=== PATIENT | male | born 1950 | race Caucasian/White ===

== ENCOUNTER 2024-01-21 19:01 | Inpatient (IN) | payer MEDICARE, BC ==
[~2024-01-21] VITALS: Ht 185.4 cm; Wt 88.9 kg
[2024-01-21 19:27] LABS: BASOPHILS # (AUTO) 0.1 K/UL (0.0-0.2); BASOPHILS % (AUTO) 1.2 % (0.0-2.0); EOSINOPHILS # (AUTO) 0.2 K/uL (0.0-0.7); EOSINOPHILS % (AUTO) 3.4 % (0.0-7.0); HEMATOCRIT 42.3 % (36.7-47.1); HEMOGLOBIN 14.1 g/dL (12.5-16.3); LYMPHOCYTES # (AUTO) 1.4 K/uL (0.8-4.8); LYMPHOCYTES % (AUTO) 23.5 % (20.5-51.5); MEAN CORPUSCULAR HEMOGLOBIN 29.8 uug (23.8-33.4); MEAN CORPUSCULAR HGB CONC 33 g/dL (32.5-36.3); MEAN CORPUSCULAR VOLUME 89.3 fL (73.0-96.2); MONOCYTES # (AUTO) 0.5 K/uL (0.1-1.30); MONOCYTES % (AUTO) 8.5 % (0.0-11.0); NEUTROPHILS # (AUTO) 3.7 K/uL (1.8-8.9); NEUTROPHILS % (AUTO) 63.4 % (38.5-71.5); PLATELET COUNT (AUTO) 195 K/uL (152-348); RED BLOOD CELL COUNT(AUTO) 4.74 MIL/uL (4.06-5.63); RED CELL DISTRIBUTION WIDTH 13.8 % (12.1-16.2); WHITE BLOOD COUNT (AUTO) 5.8 K/uL (3.6-10.2)
[2024-01-21 19:47] LABS: DIFFERENTIAL COMMENT 1
[2024-01-21 19:52] LABS: CALCIUM 9.4 mg/dL (8.5-10.1); CARBON DIOXIDE 29 mmol/L (21-32); CHLORIDE 109 mmol/L (98-107); CREATININE 1.7 mg/dL (0.6-1.3); GLUCOSE 93 mg/dL (74-106); POTASSIUM 4.9 mmol/L (3.5-5.1); SODIUM SERUM 144 mmol/L (136-145); UREA NITROGEN, BLOOD 21 mg/dL (7-18)
[2024-01-21 19:57] LABS: ETHANOL < 3 MG/DL (0-10)
[2024-01-21 20:08] LABS: ACETAMINOPHEN < 2.0 ug/mL (10-30); ALANINE AMINOTRANSFERASE 23 U/L (16-63); ALBUMIN 3.5 g/dL (3.4-5.0); ALKALINE PHOSPHATASE 125 U/L (50-136); ASPARTATE AMINOTRANSFERASE 18 U/L (15-37); BILIRUBIN,TOTAL 0.9 mg/dL (0.2-1.0); TOTAL PROTEIN, SERUM 7.1 g/dL (6.4-8.2)
[2024-01-21] MEDS ORDERED: ATOR10TA PO (20:12)
[2024-01-21] MEDS ORDERED: FINA5TAB11 PO (20:12)
[2024-01-21] MEDS ORDERED: BUPR300T52 (20:12)
[2024-01-21] MEDS ORDERED: ZOLP10TA6 (20:12)
[2024-01-21] MEDS ORDERED: LEVO50CA4 PO (20:12)
[2024-01-21] MEDS ORDERED: ALPR2TAB7 (20:12)
[2024-01-21] MEDS ORDERED: TADA5TAB2 PO (20:12)
[2024-01-21] MEDS ORDERED: AMLO10TA4 PO (20:12)
[2024-01-21 20:35] LABS: *BILIRUBIN,URIN NEGATIVE (NEGATIVE); *BLOOD, URINE NEGATIVE (NEGATIVE); *CLARITY,URINE CLEAR (CLEAR); *COLOR,URINE YELLOW (YELLOW); *KETONES,URINE NEGATIVE (NEGATIVE); *PROTEIN,URINE NEGATIVE (NEGATIVE); *UROBILINOGEN,URINE 0.2 E.U./dl (NORMAL); LEUKOCYTE ESTERASE ,URINE NEGATIVE (NEGATIVE); NITRITE, URINE NEGATIVE (NEGATIVE); UGLUCOSE NEGATIVE (NEGATIVE)
[2024-01-21 20:48] LABS: *AMPHETAMINE, URINE NEGATIVE (NEGATIVE); *BARBITURATE, URINE NEGATIVE (NEGATIVE); *BENZODIAZEPINE, URINE POSITIVE (NEGATIVE); *CANNABINOID, URINE NEGATIVE (NEGATIVE); *COCCAINE, URINE NEGATIVE (NEGATIVE); *OPIATE, URINE NEGATIVE (NEGATIVE); *PHENCYCLIDINE SCREEN,URINE NEGATIVE (NEGATIVE); FENTANYL, URINE NEGATIVE (NEGATIVE)
[2024-01-21] MEDS ORDERED: ZOLPIDEM 5 MG TABLET PO PRN (22:15)
[2024-01-21] MEDS: BLOOD SUGAR DIAGNOSTIC 1 EACH STRIP VI ONE (22:15)
[2024-01-21] MEDS: LORAZEPAM 1 MG TABLET PO PRN (23:23)
[2024-01-21] MEDS: ZOLPIDEM 5 MG TABLET PO PRN (23:57)
[2024-01-22] MEDS: LEVOTHYROXINE SODIUM 50 MCG TABLET PO SCH (06:35)
[2024-01-22 07:54] VITALS: BP 138/78; TEMP 98; O2SAT 98
[2024-01-22] MEDS: AMLODIPINE 10 MG TABLET PO SCH (09:08)
[2024-01-22] MEDS: FINASTERIDE 5 MG TABLET PO SCH (09:08)
[2024-01-22 15:49] VITALS: BP 136/73; TEMP 98; O2SAT 98
[2024-01-22 20:00] VITALS: BP 99/56; TEMP 97.9; O2SAT 96
[2024-01-22] MEDS: ATORVASTATIN 10 MG TABLET PO SCH (20:33)
[2024-01-22] MEDS: ZOLPIDEM 5 MG TABLET PO PRN (20:33)
[2024-01-23 07:47] VITALS: BP 133/76; TEMP 98.2; O2SAT 97
[2024-01-23] MEDS: buPROPion XL 150 MG TAB.SR.24H PO SCH (08:33)
[2024-01-23 12:56] LABS: THYROID STIMULATING HORMONE 1.791 mIU/mL (0.358-3.740)
[2024-01-23 16:54] VITALS: BP 108/62; TEMP 98.1; O2SAT 98
[2024-01-23 19:58] LABS: *CREATININE,URINE 195.4 mg/dL (30-125); *URINE TOTAL PROTEIN RANDOM 30.8 mg/dL (<150/24HR)
[2024-01-23 20:00] VITALS: BP 114/66; TEMP 98.3; O2SAT 99
[2024-01-23] MEDS: LORAZEPAM 1 MG TABLET PO PRN (23:06)
[2024-01-24] MEDS: ACETAMINOPHEN 325 MG TABLET PO PRN (02:25)
[2024-01-24 08:07] LABS: BASOPHILS % (AUTO) 0.6 % (0.0-2.0); EOSINOPHILS # (AUTO) 0.2 K/uL (0.0-0.7); EOSINOPHILS % (AUTO) 3.4 % (0.0-7.0); HEMATOCRIT 41.6 % (36.7-47.1); HEMOGLOBIN 14.2 g/dL (12.5-16.3); LYMPHOCYTES # (AUTO) 1.4 K/uL (0.8-4.8); MEAN CORPUSCULAR HEMOGLOBIN 30.2 uug (23.8-33.4); MEAN CORPUSCULAR HGB CONC 34 g/dL (32.5-36.3); MEAN CORPUSCULAR VOLUME 88.6 fL (73.0-96.2); MONOCYTES # (AUTO) 0.5 K/uL (0.1-1.30); MONOCYTES % (AUTO) 8.9 % (0.0-11.0); NEUTROPHILS # (AUTO) 3.2 K/uL (1.8-8.9); NEUTROPHILS % (AUTO) 61.1 % (38.5-71.5); PLATELET COUNT (AUTO) 176 K/uL (152-348); RED CELL DISTRIBUTION WIDTH 13.6 % (12.1-16.2); WHITE BLOOD COUNT (AUTO) 5.2 K/uL (3.6-10.2)
[2024-01-24 08:08] LABS: DIFFERENTIAL COMMENT 1
[2024-01-24 08:20] LABS: ALANINE AMINOTRANSFERASE 12 U/L (16-63); ALBUMIN 3.4 g/dL (3.4-5.0); ALKALINE PHOSPHATASE 115 U/L (50-136); ASPARTATE AMINOTRANSFERASE 10 U/L (15-37); CALCIUM 8.8 mg/dL (8.5-10.1); CARBON DIOXIDE 26 mmol/L (21-32); CHLORIDE 109 mmol/L (98-107); CREATINE KINASE, TOTAL 55 U/L (39-308); CREATININE 1.5 mg/dL (0.6-1.3); GLUCOSE 94 mg/dL (74-106); PHOSPHOROUS 3.1 mg/dL (2.5-4.9); POTASSIUM 3.9 mmol/L (3.5-5.1); SODIUM SERUM 144 mmol/L (136-145); TOTAL PROTEIN, SERUM 6.7 g/dL (6.4-8.2); UREA NITROGEN, BLOOD 18 mg/dL (7-18)
[2024-01-24 08:36] VITALS: BP 130/76; TEMP 98.1; O2SAT 97
[2024-01-24] MEDS: MAG HYDROX/AL HYDROX/SIMETH 30 ML LIQUID UDC PO PRN (11:15)
[2024-01-24 17:00] VITALS: BP 130/69; TEMP 98; O2SAT 97
[2024-01-24 20:05] VITALS: BP 128/71; TEMP 98.1; O2SAT 96
[2024-01-25 08:01] VITALS: BP 133/74; TEMP 98.2; O2SAT 98
[2024-01-25] MEDS: ARIPIPRAZOLE 5 MG TABLET PO SCH (09:49)
[2024-01-25] MEDS: GABAPENTIN 100 MG CAPSULE PO SCH (13:56)
[2024-01-25 16:40] VITALS: BP 131/84; TEMP 98.2; O2SAT 98
[2024-01-25] MEDS: ONDANSETRON HCL 4 MG TABLET PO PRN (18:03)
[2024-01-25 20:13] VITALS: BP 130/76; TEMP 98.1; O2SAT 96
[2024-01-26 07:53] VITALS: BP 157/87; TEMP 98; O2SAT 98
[2024-01-26 08:09] LABS: PTH, INTACT 109 pg/mL (15-65)
[2024-01-26] MEDS ORDERED: LORAZEPAM 1 MG TABLET PO PRN (08:15)
[2024-01-26] MEDS: ONDANSETRON 4 MG/2 ML VIAL IM ONE (08:25)
[2024-01-26] MEDS ORDERED: ONDANSETRON 4 MG/2 ML VIAL IM PRN (09:30)
[2024-01-26 14:09] LABS: A/G RATIO 0.9 (0.7-1.7); ALBUMIN 2.9 g/dL (2.9-4.4); ALPHA-1-GLOBULIN 0.3 g/dL (0.0-0.4); ALPHA-2-GLOBULIN 0.7 g/dL (0.4-1.0); GAMMA GLOBULIN 1.2 g/dL (0.4-1.8); GLOBULIN, TOTAL 3.3 g/dL (2.2-3.9); M-SPIKE Not Observed g/dL (Not Observed); PROTEIN, TOTAL 6.2 g/dL (6.0-8.5)
[2024-01-26 15:57] VITALS: BP 139/78; TEMP 98; O2SAT 95
[2024-01-26 20:04] VITALS: BP 146/76; TEMP 98.1; O2SAT 95
[2024-01-26] MEDS: MELATONIN 3 MG TABLET PO SCH (20:36)
[2024-01-26] MEDS: HYDROXYZINE PAMOATE 25 MG CAPSULE PO PRN (20:36)
[2024-01-27 07:30] VITALS: BP 136/61; TEMP 98.2; O2SAT 98
[2024-01-27 15:36] VITALS: BP 103/59; TEMP 98; O2SAT 96
[2024-01-27 20:00] VITALS: BP 118/77; TEMP 98.3; O2SAT 94
[2024-01-28] MEDS: MAGNESIUM HYDROXIDE 30 ML LIQUID UDC PO PRN (05:42)
[2024-01-28 08:02] VITALS: BP 133/61; TEMP 98; O2SAT 98
[2024-01-28 16:07] VITALS: BP 146/82; TEMP 98; O2SAT 98
[2024-01-28 20:00] VITALS: BP 116/84; TEMP 99; O2SAT 95
[2024-01-29] MEDS: OLANZAPINE 10 MG VIAL IM ONE ×4 (00:12→10:12)
[2024-01-29 08:09] VITALS: BP 97/75; TEMP 98; O2SAT 99
[2024-01-29] MEDS: OLANZAPINE 5 MG TABLET PO SCH (08:20)
[2024-01-29] MEDS: DIVALPROEX SPRINKLE 125 MG CAP.SPRINK PO SCH (08:20)
[2024-01-29] MEDS ORDERED: LORAZEPAM 2 MG/1 ML VIAL IV STA (11:46)
[2024-01-29] MEDS: diphenhydrAMINE 50 MG/1 ML VIAL IM ONE (12:13)
[2024-01-29] MEDS: LORAZEPAM 2 MG/1 ML VIAL IM ONE (12:16)
[2024-01-29] MEDS: HALOPERIDOL LACTATE 5 MG/1 ML VIAL IM ONE (12:17)
[2024-01-29 15:12] LABS: ALANINE AMINOTRANSFERASE 19 U/L (16-63); ALBUMIN 3.8 g/dL (3.4-5.0); ALKALINE PHOSPHATASE 100 U/L (50-136); ASPARTATE AMINOTRANSFERASE 34 U/L (15-37); BILIRUBIN,TOTAL 1.4 mg/dL (0.2-1.0); CALCIUM 9.4 mg/dL (8.5-10.1); CARBON DIOXIDE 28 mmol/L (21-32); CHLORIDE 100 mmol/L (98-107); CREATININE 2.3 mg/dL (0.6-1.3); GLUCOSE 101 mg/dL (74-106); POTASSIUM 3.5 mmol/L (3.5-5.1); SODIUM SERUM 139 mmol/L (136-145); TOTAL PROTEIN, SERUM 7.1 g/dL (6.4-8.2); UREA NITROGEN, BLOOD 37 mg/dL (7-18)
[2024-01-29 15:13] LABS: BASOPHILS # (AUTO) 0.1 K/UL (0.0-0.2); BASOPHILS % (AUTO) 0.8 % (0.0-2.0); EOSINOPHILS # (AUTO) 0.1 K/uL (0.0-0.7); EOSINOPHILS % (AUTO) 0.9 % (0.0-7.0); HEMOGLOBIN 15.2 g/dL (12.5-16.3); LYMPHOCYTES # (AUTO) 2.6 K/uL (0.8-4.8); LYMPHOCYTES % (AUTO) 22.4 % (20.5-51.5); MEAN CORPUSCULAR HEMOGLOBIN 29.5 uug (23.8-33.4); MEAN CORPUSCULAR HGB CONC 33 g/dL (32.5-36.3); MEAN CORPUSCULAR VOLUME 89.2 fL (73.0-96.2); MONOCYTES # (AUTO) 1.3 K/uL (0.1-1.30); MONOCYTES % (AUTO) 11.2 % (0.0-11.0); NEUTROPHILS # (AUTO) 7.5 K/uL (1.8-8.9); NEUTROPHILS % (AUTO) 64.7 % (38.5-71.5); PLATELET COUNT (AUTO) 238 K/uL (152-348); RED BLOOD CELL COUNT(AUTO) 5.16 MIL/uL (4.06-5.63); RED CELL DISTRIBUTION WIDTH 13.4 % (12.1-16.2); WHITE BLOOD COUNT (AUTO) 11.5 K/uL (3.6-10.2)
[2024-01-29 15:14] LABS: DIFFERENTIAL COMMENT 1
[2024-01-29 15:25] VITALS: BP 121/93; TEMP 98; O2SAT 96
[2024-01-30 07:19] LABS: BASOPHILS # (AUTO) 0.1 K/UL (0.0-0.2); BASOPHILS % (AUTO) 0.6 % (0.0-2.0); EOSINOPHILS # (AUTO) 0.2 K/uL (0.0-0.7); EOSINOPHILS % (AUTO) 1.9 % (0.0-7.0); HEMATOCRIT 43.4 % (36.7-47.1); HEMOGLOBIN 14.9 g/dL (12.5-16.3); LYMPHOCYTES # (AUTO) 2.5 K/uL (0.8-4.8); LYMPHOCYTES % (AUTO) 20.5 % (20.5-51.5); MEAN CORPUSCULAR HEMOGLOBIN 30.3 uug (23.8-33.4); MEAN CORPUSCULAR HGB CONC 34 g/dL (32.5-36.3); MEAN CORPUSCULAR VOLUME 88.2 fL (73.0-96.2); MONOCYTES # (AUTO) 1.2 K/uL (0.1-1.30); MONOCYTES % (AUTO) 10.3 % (0.0-11.0); NEUTROPHILS # (AUTO) 8.1 K/uL (1.8-8.9); NEUTROPHILS % (AUTO) 66.7 % (38.5-71.5); PLATELET COUNT (AUTO) 250 K/uL (152-348); RED BLOOD CELL COUNT(AUTO) 4.93 MIL/uL (4.06-5.63); RED CELL DISTRIBUTION WIDTH 13.7 % (12.1-16.2); WHITE BLOOD COUNT (AUTO) 12.1 K/uL (3.6-10.2)
[2024-01-30 07:21] LABS: DIFFERENTIAL COMMENT 1
[2024-01-30 07:32] LABS: MAGNESIUM 2.4 mg/dL (1.8-2.4); PHOSPHOROUS 3.3 mg/dL (2.5-4.9)
[2024-01-30 07:58] VITALS: BP 108/71; TEMP 97.9; O2SAT 98
[2024-01-30] MEDS ORDERED: diphenhydrAMINE 25 MG/10 ML UDC PO PRN (10:15)
[2024-01-30] MEDS: CEFDINIR 300 MG CAPSULE PO SCH (12:18)
[2024-01-30] MEDS: LORAZEPAM 1 MG TABLET PO PRN (12:23)
[2024-01-30 16:20] VITALS: BP 120/79; TEMP 98; O2SAT 97
[2024-01-30 19:36] LABS: *BLOOD, URINE NEGATIVE (NEGATIVE); *CLARITY,URINE CLEAR (CLEAR); *COLOR,URINE YELLOW (YELLOW); *KETONES,URINE TRACE (NEGATIVE); *PROTEIN,URINE TRACE (NEGATIVE); LEUKOCYTE ESTERASE ,URINE NEGATIVE (NEGATIVE); NITRITE, URINE NEGATIVE (NEGATIVE); UGLUCOSE NEGATIVE (NEGATIVE)
[2024-01-30 19:40] LABS: *BILIRUBIN,URIN 1+ (NEGATIVE); RBC,URINE 0-3 /HPF (0-3); WBC,URINE 0-3 /HPF (0-3)
[2024-01-30 19:46] LABS: *CREATININE,URINE 314.4 mg/dL (30-125); *URINE TOTAL PROTEIN RANDOM 49.5 mg/dL (<150/24HR)
[2024-01-30 20:00] VITALS: BP 134/82; TEMP 98.4; O2SAT 94
[2024-01-30] MEDS: HALOPERIDOL 5 MG TABLET PO PRN (20:16)
[2024-01-30] MEDS: TEMAZEPAM 15 MG CAPSULE PO PRN (22:30)
[2024-01-31 08:06] LABS: BASOPHILS % (AUTO) 0.6 % (0.0-2.0); EOSINOPHILS # (AUTO) 0.3 K/uL (0.0-0.7); EOSINOPHILS % (AUTO) 4.5 % (0.0-7.0); HEMATOCRIT 41.1 % (36.7-47.1); HEMOGLOBIN 13.9 g/dL (12.5-16.3); LYMPHOCYTES # (AUTO) 1.2 K/uL (0.8-4.8); LYMPHOCYTES % (AUTO) 17.5 % (20.5-51.5); MEAN CORPUSCULAR HEMOGLOBIN 30.1 uug (23.8-33.4); MEAN CORPUSCULAR HGB CONC 34 g/dL (32.5-36.3); MEAN CORPUSCULAR VOLUME 89.1 fL (73.0-96.2); MONOCYTES # (AUTO) 0.7 K/uL (0.1-1.30); MONOCYTES % (AUTO) 9.8 % (0.0-11.0); NEUTROPHILS # (AUTO) 4.6 K/uL (1.8-8.9); NEUTROPHILS % (AUTO) 67.6 % (38.5-71.5); PLATELET COUNT (AUTO) 180 K/uL (152-348); RED BLOOD CELL COUNT(AUTO) 4.61 MIL/uL (4.06-5.63); RED CELL DISTRIBUTION WIDTH 13.7 % (12.1-16.2); WHITE BLOOD COUNT (AUTO) 6.8 K/uL (3.6-10.2)
[2024-01-31 08:24] VITALS: BP 119/70; TEMP 98.5; O2SAT 98
[2024-01-31 08:29] LABS: ALANINE AMINOTRANSFERASE 22 U/L (16-63); ALBUMIN 3.1 g/dL (3.4-5.0); ALKALINE PHOSPHATASE 89 U/L (50-136); ASPARTATE AMINOTRANSFERASE 32 U/L (15-37); BILIRUBIN,TOTAL 1.5 mg/dL (0.2-1.0); CALCIUM 8.9 mg/dL (8.5-10.1); CARBON DIOXIDE 28 mmol/L (21-32); CHLORIDE 103 mmol/L (98-107); CREATININE 2.8 mg/dL (0.6-1.3); GLUCOSE 100 mg/dL (74-106); MAGNESIUM 2.6 mg/dL (1.8-2.4); PHOSPHOROUS 3.8 mg/dL (2.5-4.9); POTASSIUM 3.6 mmol/L (3.5-5.1); SODIUM SERUM 141 mmol/L (136-145); TOTAL PROTEIN, SERUM 6.3 g/dL (6.4-8.2); UREA NITROGEN, BLOOD 60 mg/dL (7-18)
[2024-01-31 09:36] VITALS: BP 119/70
[2024-01-31] MEDS ORDERED: IV NS 1000 ML 1,000 ML IV SCH (11:15)
[2024-01-31] MEDS ORDERED: ACET-3117 PO (15:18)
[2024-01-31] MEDS ORDERED: CEFD300C3 PO (15:18)
[2024-01-31] MEDS ORDERED: HALO5TAB12 PO (15:24)
[2024-01-31] MEDS ORDERED: LORA0.5T48 PO (15:24)
[2024-01-31] MEDS ORDERED: HYDR25CA PO (15:24)
[2024-01-31] MEDS ORDERED: DIVA250T4 PO (15:24)
[2024-01-31] MEDS ORDERED: MAGN400O6 PO (15:24)
[2024-01-31] MEDS ORDERED: DIPH25CA83 PO (15:30)
[2024-01-31] MEDS ORDERED: ONDA4TAB5 IM (15:30)
[2024-01-31] MEDS ORDERED: OLAN5TAB3 PO (15:30)
[2024-01-31] MEDS ORDERED: ONDA4TAB5 PO (15:30)
[2024-01-31] MEDS ORDERED: TEMA15CA5 PO (15:30)
[2024-01-31] MEDS ORDERED: MELA1TAB27 PO (15:31)
== END 2024-01-31 14:02 | disposition short-term general hospital (02) | DRG 885 ==
LOC: ER 19:04 → GPS 22:01
PROVIDERS: ADMIT Psychiatry & Neurology Psychiatry; ATTEND Nurse Practitioner Acute Care
DX: F31.64 Bipolar disorder, current episode mixed, severe, with psychotic features (principal); N17.0 Acute kidney failure with tubular necrosis; N18.30 Chronic kidney disease, stage 3 unspecified; R45.851 Suicidal ideations; F13.10 Sedative, hypnotic or anxiolytic abuse, uncomplicated; F43.10 Post-traumatic stress disorder, unspecified; D17.0 Benign lipomatous neoplasm of skin and subcutaneous tissue of head, face and neck; E03.9 Hypothyroidism, unspecified; F41.9 Anxiety disorder, unspecified; I12.9 Hypertensive chronic kidney disease with stage 1 through stage 4 chronic kidney disease, or unspecified chronic kidney disease; E78.5 Hyperlipidemia, unspecified; M89.8X9 Other specified disorders of bone, unspecified site; N40.0 Benign prostatic hyperplasia without lower urinary tract symptoms; Z88.6 Allergy status to analgesic agent; Z88.2 Allergy status to sulfonamides; R22.32 Localized swelling, mass and lump, left upper limb
CPT/HCPCS: 36415; 70450; 76770; 83735; 83921; 83970; 84100; 84155; 84165; 84300; 84443; 85025; G0480; J1200; J1630; J2060; J2358; J2405; J7040; Q0162

== ENCOUNTER 2024-01-31 14:10 | Inpatient (IN) | payer MEDICARE, BC ==
[~2024-01-31] VITALS: Ht 185.4 cm; Wt 88.9 kg
[~2024-01-31 14:10] MED LIST: AMLO10TA4 PO; ATOR10TA PO; FINA5TAB11 PO; LEVO50CA4 PO; TADA5TAB2 PO
[2024-01-31] MEDS ORDERED: ONDANSETRON 4 MG/2 ML VIAL IV PRN (15:15)
[2024-01-31] MEDS ORDERED: REMEDY ESSENTIAL ZINC PASTE 113 GM TP PRN (15:15)
[2024-01-31] MEDS ORDERED: ACETAMINOPHEN 325 MG TABLET PO PRN (15:15)
[2024-01-31] MEDS ORDERED: MAGNESIUM HYDROXIDE 30 ML LIQUID UDC PO PRN (15:15)
[2024-01-31] MEDS ORDERED: ACET-3117 PO (15:18)
[2024-01-31] MEDS ORDERED: CEFD300C3 PO (15:18)
[2024-01-31] MEDS ORDERED: MAGN400O6 PO (15:24)
[2024-01-31] MEDS ORDERED: HALO5TAB12 PO (15:24)
[2024-01-31] MEDS ORDERED: HYDR25CA PO (15:24)
[2024-01-31] MEDS ORDERED: DIVA250T4 PO (15:24)
[2024-01-31] MEDS ORDERED: LORA0.5T48 PO (15:24)
[2024-01-31] MEDS ORDERED: ONDA4TAB5 PO (15:30)
[2024-01-31] MEDS ORDERED: ONDA4TAB5 IM (15:30)
[2024-01-31] MEDS ORDERED: OLAN5TAB3 PO (15:30)
[2024-01-31] MEDS ORDERED: TEMA15CA5 PO (15:30)
[2024-01-31] MEDS ORDERED: DIPH25CA83 PO (15:30)
[2024-01-31] MEDS ORDERED: MELA1TAB27 PO (15:31)
[2024-01-31] MEDS ORDERED: HYDROXYZINE PAMOATE 25 MG CAPSULE PO PRN (15:45)
[2024-01-31] MEDS ORDERED: HALOPERIDOL 5 MG TABLET PO PRN (15:45)
[2024-01-31] MEDS ORDERED: diphenhydrAMINE 25 MG CAP PO PRN (16:00)
[2024-01-31] MEDS ORDERED: LORAZEPAM 1 MG TABLET PO PRN (16:00)
[2024-01-31] MEDS ORDERED: MAG HYDROX/AL HYDROX/SIMETH 30 ML LIQUID UDC PO PRN (16:00)
[2024-01-31] MEDS: IV NS 1000 ML 1,000 ML IV PRN (16:18)
[2024-01-31] MEDS: CEFEPIME HCL 1 G in IV DEXTROSE 5% 50 ML IV SCH (16:19)
[2024-01-31 17:51] VITALS: BP 126/73; TEMP 98
[2024-01-31] MEDS: OLANZAPINE 5 MG TABLET PO SCH (18:24)
[2024-01-31 20:00] VITALS: BP 124/70; TEMP 98.2
[2024-01-31] MEDS: ATORVASTATIN 10 MG TABLET PO SCH (20:19)
[2024-01-31] MEDS: DIVALPROEX SPRINKLE 125 MG CAP.SPRINK PO SCH (20:19)
[2024-01-31] MEDS: MELATONIN 3 MG TABLET PO SCH (20:19)
[2024-01-31 21:19] VITALS: BP 124/70; TEMP 98.2; O2SAT 96
[2024-02-01 05:00] VITALS: BP 120/70; TEMP 98; O2SAT 96
[2024-02-01] MEDS: PANTOPRAZOLE SODIUM 40 MG TABLET.DR PO SCH (06:12)
[2024-02-01] MEDS: LEVOTHYROXINE SODIUM 50 MCG TABLET PO SCH (06:12)
[2024-02-01 06:50] LABS: BASOPHILS % (AUTO) 0.5 % (0.0-2.0); EOSINOPHILS # (AUTO) 0.4 K/uL (0.0-0.7); EOSINOPHILS % (AUTO) 6.8 % (0.0-7.0); HEMOGLOBIN 13.6 g/dL (12.5-16.3); LYMPHOCYTES # (AUTO) 1.1 K/uL (0.8-4.8); LYMPHOCYTES % (AUTO) 21.2 % (20.5-51.5); MEAN CORPUSCULAR HEMOGLOBIN 30.2 uug (23.8-33.4); MEAN CORPUSCULAR HGB CONC 34 g/dL (32.5-36.3); MEAN CORPUSCULAR VOLUME 88.7 fL (73.0-96.2); MONOCYTES # (AUTO) 0.5 K/uL (0.1-1.30); MONOCYTES % (AUTO) 9.3 % (0.0-11.0); NEUTROPHILS # (AUTO) 3.3 K/uL (1.8-8.9); NEUTROPHILS % (AUTO) 62.2 % (38.5-71.5); PLATELET COUNT (AUTO) 178 K/uL (152-348); RED BLOOD CELL COUNT(AUTO) 4.51 MIL/uL (4.06-5.63); RED CELL DISTRIBUTION WIDTH 13.7 % (12.1-16.2); WHITE BLOOD COUNT (AUTO) 5.3 K/uL (3.6-10.2)
[2024-02-01 07:03] LABS: DIFFERENTIAL COMMENT 1
[2024-02-01 07:05] LABS: CALCIUM 8.7 mg/dL (8.5-10.1); CARBON DIOXIDE 29 mmol/L (21-32); CHLORIDE 105 mmol/L (98-107); CREATININE 1.6 mg/dL (0.6-1.3); GLUCOSE 88 mg/dL (74-106); MAGNESIUM 2.1 mg/dL (1.8-2.4); PHOSPHOROUS 3.1 mg/dL (2.5-4.9); POTASSIUM 3.5 mmol/L (3.5-5.1); SODIUM SERUM 141 mmol/L (136-145); UREA NITROGEN, BLOOD 42 mg/dL (7-18)
[2024-02-01 07:56] VITALS: BP 128/62; TEMP 98.5; O2SAT 95
[2024-02-01] MEDS ORDERED: PANTOPRAZOLE SODIUM 40 MG VIAL IV SCH (09:00)
[2024-02-01] MEDS: buPROPion XL 150 MG TAB.SR.24H PO SCH (09:11)
[2024-02-01] MEDS: AMLODIPINE 10 MG TABLET PO SCH (09:11)
[2024-02-01] MEDS: FINASTERIDE 5 MG TABLET PO SCH (09:11)
[2024-02-01 11:44] VITALS: BP 105/59; TEMP 98.6; O2SAT 95
[2024-02-01 15:40] VITALS: BP 107/62; TEMP 98.7; O2SAT 94
[2024-02-01] MEDS: CEFEPIME HCL 1 G in IV DEXTROSE 5% 50 ML IV SCH (15:55)
[2024-02-01 19:05] LABS: *BILIRUBIN,URIN NEGATIVE (NEGATIVE); *BLOOD, URINE 1+ (NEGATIVE); *CLARITY,URINE CLEAR (CLEAR); *COLOR,URINE YELLOW (YELLOW); *KETONES,URINE 1+ (NEGATIVE); *PROTEIN,URINE 1+ (NEGATIVE); *UROBILINOGEN,URINE 0.2 E.U./dl (NORMAL); LEUKOCYTE ESTERASE ,URINE NEGATIVE (NEGATIVE); NITRITE, URINE NEGATIVE (NEGATIVE); UGLUCOSE NEGATIVE (NEGATIVE)
[2024-02-01 19:20] LABS: *CREATININE,URINE 159.2 mg/dL (30-125); *URINE TOTAL PROTEIN RANDOM 35.1 mg/dL (<150/24HR)
[2024-02-01 19:26] LABS: BACTERIA,URINE NONE SEEN /HPF (NONE SEEN); SQUAMOUS EPITHELIAL CELL,UR FEW /HPF (NONE SEEN); WBC,URINE 0-3 /HPF (0-3)
[2024-02-01 20:00] VITALS: BP 115/58; TEMP 98; O2SAT 91
[2024-02-02 04:16] VITALS: BP 114/60; TEMP 98.1; O2SAT 91
[2024-02-02 06:16] LABS: EOSINOPHILS # (AUTO) 0.3 K/uL (0.0-0.7); EOSINOPHILS % (AUTO) 6.3 % (0.0-7.0); HEMATOCRIT 39.1 % (36.7-47.1); HEMOGLOBIN 13.2 g/dL (12.5-16.3); LYMPHOCYTES # (AUTO) 1.1 K/uL (0.8-4.8); LYMPHOCYTES % (AUTO) 22.2 % (20.5-51.5); MEAN CORPUSCULAR HEMOGLOBIN 30.2 uug (23.8-33.4); MEAN CORPUSCULAR HGB CONC 34 g/dL (32.5-36.3); MEAN CORPUSCULAR VOLUME 89.4 fL (73.0-96.2); MONOCYTES # (AUTO) 0.4 K/uL (0.1-1.30); MONOCYTES % (AUTO) 8.8 % (0.0-11.0); NEUTROPHILS % (AUTO) 61.7 % (38.5-71.5); PLATELET COUNT (AUTO) 178 K/uL (152-348); RED BLOOD CELL COUNT(AUTO) 4.38 MIL/uL (4.06-5.63); RED CELL DISTRIBUTION WIDTH 13.6 % (12.1-16.2); WHITE BLOOD COUNT (AUTO) 4.9 K/uL (3.6-10.2)
[2024-02-02 06:41] LABS: ALANINE AMINOTRANSFERASE 21 U/L (16-63); ALKALINE PHOSPHATASE 89 U/L (50-136); ASPARTATE AMINOTRANSFERASE 17 U/L (15-37); BILIRUBIN,TOTAL 0.9 mg/dL (0.2-1.0); CALCIUM 8.7 mg/dL (8.5-10.1); CARBON DIOXIDE 28 mmol/L (21-32); CHLORIDE 109 mmol/L (98-107); CREATINE KINASE, TOTAL 178 U/L (39-308); CREATININE 1.4 mg/dL (0.6-1.3); GLUCOSE 101 mg/dL (74-106); MAGNESIUM 1.8 mg/dL (1.8-2.4); PHOSPHOROUS 2.2 mg/dL (2.5-4.9); POTASSIUM 3.8 mmol/L (3.5-5.1); SODIUM SERUM 142 mmol/L (136-145); TOTAL PROTEIN, SERUM 6.4 g/dL (6.4-8.2); UREA NITROGEN, BLOOD 27 mg/dL (7-18)
[2024-02-02 06:52] LABS: DIFFERENTIAL COMMENT 1
[2024-02-02] MEDS: LACTULOSE 20 G/30 ML LIQUID UDC PO PRN (07:02)
[2024-02-02 08:11] VITALS: BP 132/61; TEMP 96.7; O2SAT 96
[2024-02-02 12:10] VITALS: BP 117/68; O2SAT 95
[2024-02-02] MEDS: NEUTRA PHOS PACKET PO ONE (13:07)
[2024-02-02 16:12] VITALS: BP 129/63; TEMP 99.7; O2SAT 95
[2024-02-02 20:30] VITALS: BP 174/94; TEMP 98.8; O2SAT 95
[2024-02-02] MEDS: TEMAZEPAM 15 MG CAPSULE PO PRN (21:39)
[2024-02-02 22:00] VITALS: BP 118/66; TEMP 98.8; O2SAT 96
[2024-02-03 04:41] VITALS: BP 136/74; TEMP 98.7; O2SAT 96
[2024-02-03 06:49] LABS: CALCIUM 8.7 mg/dL (8.5-10.1); CARBON DIOXIDE 29 mmol/L (21-32); CHLORIDE 109 mmol/L (98-107); CREATININE 1.1 mg/dL (0.6-1.3); GLUCOSE 103 mg/dL (74-106); PHOSPHOROUS 2.2 mg/dL (2.5-4.9); SODIUM SERUM 142 mmol/L (136-145); UREA NITROGEN, BLOOD 14 mg/dL (7-18)
[2024-02-03 08:06] VITALS: BP 136/74
[2024-02-03 08:06] LABS: PTH, INTACT 48 pg/mL (15-65)
[2024-02-03] MEDS: CEFEPIME HCL 1 G in IV DEXTROSE 5% 50 ML IV SCH (10:14)
[2024-02-03] MEDS ORDERED: BUPR-53 PO (10:38)
[2024-02-03] MEDS ORDERED: PANT40TA49 PO (10:38)
[2024-02-03] MEDS ORDERED: OLAN5TAB70 PO (10:38)
[2024-02-03] MEDS ORDERED: AMLO10TA59 PO (10:38)
[2024-02-03] MEDS ORDERED: DIVA125C2 PO (10:38)
[2024-02-03] MEDS ORDERED: FINA5TAB11 PO (10:38)
[2024-02-03] MEDS ORDERED: HYDR-3895 PO (10:38)
[2024-02-03] MEDS ORDERED: MELA3TAB41 PO (10:38)
[2024-02-03] MEDS ORDERED: ATOR10TA PO (10:38)
[2024-02-03] MEDS ORDERED: LEVO50TA8 PO (10:38)
[2024-02-03] MEDS ORDERED: LACT10SO7 PO (10:38)
== END 2024-02-03 15:27 | disposition home health service (06) | DRG 682 ==
LOC: MEDSURG3 14:10
PROVIDERS: ADMIT Nurse Practitioner Acute Care; ATTEND Nurse Practitioner Acute Care
DX: N17.9 Acute kidney failure, unspecified (principal); J18.9 Pneumonia, unspecified organism; F31.64 Bipolar disorder, current episode mixed, severe, with psychotic features; R45.851 Suicidal ideations; I12.9 Hypertensive chronic kidney disease with stage 1 through stage 4 chronic kidney disease, or unspecified chronic kidney disease; S62.661A Nondisplaced fracture of distal phalanx of left index finger, initial encounter for closed fracture; X58.XXXA Exposure to other specified factors, initial encounter; Y92.89 Other specified places as the place of occurrence of the external cause; E03.9 Hypothyroidism, unspecified; E78.5 Hyperlipidemia, unspecified; F43.10 Post-traumatic stress disorder, unspecified; F41.9 Anxiety disorder, unspecified; Z88.2 Allergy status to sulfonamides; F29 Unspecified psychosis not due to a substance or known physiological condition; D17.9 Benign lipomatous neoplasm, unspecified; F15.10 Other stimulant abuse, uncomplicated; G60.9 Hereditary and idiopathic neuropathy, unspecified; S90.121A Contusion of right lesser toe(s) without damage to nail, initial encounter; Y93.9 Activity, unspecified; S91.112A Laceration without foreign body of left great toe without damage to nail, initial encounter; N18.4 Chronic kidney disease, stage 4 (severe); E86.9 Volume depletion, unspecified; N40.0 Benign prostatic hyperplasia without lower urinary tract symptoms; M89.8X9 Other specified disorders of bone, unspecified site
CPT/HCPCS: 36415; 71045; 73130; 76770; 83735; 83970; 84100; 84155; 84165; 84300; 85025; A4663; G0378; J0692; J7040